=== PATIENT | male | born 1985 | race African-American/Black ===

== ENCOUNTER 2019-01-20 07:34 | Inpatient (IN) | payer OTHER ==
[~2019-01-20] VITALS: Ht 175.3 cm; Wt 99.8 kg
[2019-01-20 07:34] VITALS: BP 213/148
[2019-01-20 09:02] LABS: ABSOLUTE NEUTROPHILS 4.1 thou/uL (1.4-8.2); BASOPHILS 1.2 % (0.0-2.0); EOSINOPHILS 4.1 % (0.0-3.0); HEMATOCRIT 51.6 % (42.0-52.0); HEMOGLOBIN 16.9 gm/dL (14.0-18.0); LYMPHOCYTES 27.7 % (24.0-44.0); MCH 29.2 pg (26.0-34.0); MCHC 32.8 g/dL (28.0-37.0); MCV 89.1 fL (80.0-100.0); MONOCYTES 7.5 % (1.0-8.0); PLATELET COUNT 206 thou/uL (150-400); POLYS 59.5 % (36.0-66.0); RDW 14.6 % (10.5-14.5)
[2019-01-20 09:05] LABS: AMP/METHAMP Negative (Negative); BARBITURATES Negative (Negative); BENZODIAZEPINES Negative (Negative); COCAINE POSITIVE (Negative); METHADONE Negative (Negative); OPIATES Negative (Negative); PCP Negative (Negative)
[2019-01-20 09:10] LABS: CALCIUM 9.1 mg/dL (8.5-10.1); CREATININE 2.6 mg/dL (0.7-1.3); POTASSIUM 4.1 mmol/L (3.5-5.1)
[2019-01-20 09:19] LABS: MAGNESIUM 1.8 mg/dL (1.8-2.4); TOTAL BILIRUBIN 0.6 mg/dL (<0.1-1.0); TOTAL PROTEIN 7.2 g/dL (6.4-8.2); TROPONIN-I 0.08 ng/mL (<0.06)
[2019-01-20 11:19] VITALS: BP 149/95
[2019-01-20 12:30] VITALS: BP 154/66
--- NOTE | 2019-01-20 13:13 | 2DMMODE ---
[facility] [place] [address] 2 D/M-MODE ECHOCARDIOGRAM Name: GOMEZ SEVILLA Room #: 363-P [facility] IN .R.#: [id number] Admission: 01/20/19 Attend Phys: Sohan Kate MD Discharge: Date of : 89 Report #: [id number] THIS REPORT FOR: //name// APPROVED REPORT Study performed: 01/20/2019 11:06:14 EXAM: Comprehensive 2D, Doppler, and color-flow Echocardiogram Patient Location: Echo lab Status: routine BSA: 2.17 HR: 78 bpm BP: 143/94 mmHg Rhythm: NSR Other Information Study Quality: Good Indications Shortness of breath, Elevated BNP. Hx: HTN, Drug use, Tobacco use, ETOH 2D Dimensions RVDd: 40.84 mm IVSd: 13.94 (7-11mm) LVOT Diam: 23.17 (18-24mm) LVDd: 56.65 mm PWd: 15.07 (7-11mm) Ascending Ao: 33.19 (22-36mm) LVDs: 47.59 (25-40mm) Aortic Root: 37.45 mm Volumes Left Atrial Volume (Systole) Single Plane 4CH: 26.54 mL Single Plane 2CH: 63.86 mL LA ESV Index: 21.00 mL/m2 Aortic Valve AoV Peak Chris.: 0.95 m/s AO Peak Gr.: 3.59 mmHg LVOT Max P.96 mmHg LVOT Max V: 0.70 m/s KRISTIAN Vmax: 3.11 cm2 Mitral Valve E/A Ratio: 1.0 MV Decel. Time: 220.09 ms [facility] [address] [address] 2 D/M-MODE ECHOCARDIOGRAM Name: GOMEZ SEVILLA Room #: 363-[facility] IN [facility]#: [id number] Admission: 01/20/19 Attend Phys: Sohan Kate MD Discharge: Date of : 89 Report #: [id number] MV E Max Chris.: 0.65 m/s MV A Chris.: 0.64 m/s MV PHT: 63.83 ms IVRT: 93.43 ms Pulmonary Valve PV Peak Chris.: 0.58 m/s PV Peak Gr.: 1.38 mmHg Tricuspid Valve RAP Estimate: 5.00 mmHg Left Ventricle Left ventricle is borderline dilated. There is global hypokinesis of the left ventricle. Moderate concentric left ventricular hypertrophy. Left ventricular ejection fraction is severely decreased. LVEF is 25%. Mild diastolic dysfunction is present (impaired relaxation pattern). Right Ventricle The right ventricle is normal size. Right ventricle is moderately hypokinetic. Atria The left atrium size is normal. The right atrium size is normal. Aortic Valve The aortic valve is normal in structure. Trace aortic regurgitation. There is no aortic valvular stenosis. Mitral Valve The mitral valve is normal in structure. Trace mitral regurgitation. No evidence of mitral valve stenosis. Tricuspid Valve The tricuspid valve is normal in structure. There is no tricuspid valve regurgitation noted. Unable to assess PA pressure. Pulmonic Valve The pulmonary valve is normal in structure. Trace pulmonic regurgitation. Great Vessels The aortic root is normal in size. IVC is normal in size and collapses >50% with inspiration. [facility] [place] [address] 2 D/M-MODE ECHOCARDIOGRAM Name: GOMEZ SEVILLA Room #: 363-P ADM IN M.R.#: [id number] Admission: 01/20/19 Attend Phys: Sohan Kate MD Discharge: Date of : 89 Report #: [id number] Pericardium There is no pericardial effusion. There is no pleural effusion. <Conclusion> Left ventricular ejection fraction is severely decreased. There is global hypokinesis of the left ventricle. LVEF is 25%. Mild diastolic dysfunction The aortic valve is normal in structure. Trace aortic regurgitation, no stenosis. The mitral valve is normal in structure. Trace mitral regurgitation. There is no tricuspid valve regurgitation noted. Unable to assess pulmonary artery pressure. There is no pericardial effusion. <ELECTRONICALLY SIGNED> By: Shayne Rock MD, [facility] 01/20/19 1313 131 1313 Shayne Rock MD, FACC /INF
--- NOTE | 2019-01-20 13:58 | EKG ---
[address] [address] ELECTROCARDIOGRAM REPORT Name: GOMEZ SEVILLA Room #: 363-P ADM IN M.R.#: [id number] Admission: 01/20/19 Attend Phys: Sohan Kate MD Discharge: Date of : 89 Report #: [id number] THIS REPORT FOR: //name// [facility] ED Test Date: 2019-01-20 Test Time: 08:48:28 Pat Name: GOMEZ SEVILLA Department: Room: 363 Gender: M Master Glazier: dequan : 1985 Requested By: Jj Hernandez Order Number: [id number] MD: Cuate Camarillo Measurements Intervals [place] Rate: 102 P: 51 IA: 150 QRS: 53 QRSD: 99 T: 92 QT: 367 QTc: 479 Interpretive Statements Sinus tachycardia Left atrial enlargement Left ventricular hypertrophy Baseline wander in lead(s) V6 No previous ECG available for comparison Electronically Signed On 01-20-2019 13:57:51 CDT by Cuate Camarillo [email or web address] <ELECTRONICALLY SIGNED> By: Cuate Camarillo MD 01/20/19 1357 7 7 Cuate Camarillo MD /EVER
[2019-01-20 15:55] LABS: CHOLESTEROL 218 mg/dL (<200); HDL CHOLESTEROL 49 mg/dL (>40); LDL CHOLESTEROL 152 mg/dL (<100); TC:HDL 4.4 Ratio (Not establshd); TRIGLYCERIDE 85 mg/dL (<150); VLDL 17 mg/dL (<40)
--- NOTE | 2019-01-20 16:39 | NUR ---
Patient transferred to [address] [place] [address] to room 363 approx. 1215 this afternoon. STAT consults [facility] at 1000 this AM w/ no call to doctors. GLORIA Martinez made this RN aware of consults missed by ER this AM. Dr. Rock aware and renal consult has been called STAT. Pt on room air-no SOB complaints since arrival. Pt SB-SR on the monitor. 40 of lasix given per orders. Fluids dc'd, IV saline locked. No edema noted. Blood pressures still high, cardiology aware and working to start BP meds at this time.
[2019-01-20 16:50] LABS: FOLIC ACID 17.2 ng/mL (8.6-58.9)
[2019-01-20 17:11] VITALS: BP 162/121
[2019-01-20 18:36] LABS: URINE BILIRUBIN NEGATIVE (Negative); URINE BLOOD NEGATIVE (Negative); URINE CLARITY CLEAR; URINE COLOR YELLOW; URINE GLUCOSE-RANDOM* NEGATIVE (Negative); URINE KETONES NEGATIVE (Negative); URINE LEUKOCYTES-REFLEX NEGATIVE (Negative); URINE NITRITE-REFLEX NEGATIVE (Negative); URINE PROTEIN (DIPSTICK) 2+ (Negative); URINE SPECIFIC GRAVITY 1.015 (1.005-1.035); URINE UROBILINOGEN 0.2 E.U./dl (0.2-1.0)
[2019-01-20 18:49] LABS: SQUAMOUS None Seen /LPF (0-3)
[2019-01-20 18:50] LABS: BACTERIA-REFLEX 1-9 Few /HPF (None Seen); CASTS None Seen /LPF (None Seen); CRYSTALS None Seen /LPF (None Seen); URINE RBC None Seen /HPF (0-2); URINE WBC-REFLEX 0-5 Rare /HPF (0-5)
[2019-01-20 20:00] VITALS: BP 162/118
[2019-01-20 23:45] VITALS: BP 143/95
[2019-01-21] VITALS (8 sets, daily range): BP systolic 99–189; BP diastolic 56–133
[2019-01-21 05:54] LABS: ABSOLUTE NEUTROPHILS 4.4 thou/uL (1.4-8.2); BASOPHILS 1.1 % (0.0-2.0); HEMATOCRIT 52.2 % (42.0-52.0); HEMOGLOBIN 16.8 gm/dL (14.0-18.0); LYMPHOCYTES 33.9 % (24.0-44.0); MCH 28.9 pg (26.0-34.0); MCHC 32.2 g/dL (28.0-37.0); MCV 89.6 fL (80.0-100.0); MONOCYTES 8.8 % (1.0-8.0); PLATELET COUNT 236 thou/uL (150-400); POLYS 52.2 % (36.0-66.0); RBC 5.82 mil/uL (4.50-6.00); RDW 15.1 % (10.5-14.5); WBC 8.4 thou/uL (4.0-11.0)
[2019-01-21 06:12] LABS: ANION GAP 7 mmol/L (7-16); BUN 24 mg/dL (7-18); CHLORIDE 102 mmol/L (98-107); CO2 29 mmol/L (21-32); CREATININE 3.1 mg/dL (0.7-1.3); GLUCOSE 128 mg/dL (74-106); MAGNESIUM 1.6 mg/dL (1.8-2.4); POTASSIUM 3.9 mmol/L (3.5-5.1); SODIUM 138 mmol/L (136-145); TROPONIN-I <0.06 ng/mL (<0.06)
--- NOTE | 2019-01-21 06:39 | NUR ---
ASSUMED CARE OF PT AT 1900. A&Ox4, COOPERATIVE. SR ON TELE WITH HR ANYWHERE FROM 60-90'S. BP HAS BEEN WNL, SBP 144 THIS AM, CONTINUING TO MONITOR. DENIED PAIN, FLUTTERING, HEADACHES, SOA THIS SHIFT. UP AD IAN, STEADY GAIT. ASKING WHEN HE CAN GO HOME, AGREED TO TX AND STABILIZING ON MEDICATIONS. CURRENTLY RESTING. PROGRESSING TOWARDS POC GOALS.
[2019-01-21] MEDS ORDERED: CARVEDILOL3.125 MG PO (09:01)
[2019-01-21] MEDS ORDERED: PANTOPRAZOLE SO40 M1 PO (09:01)
[2019-01-21] MEDS ORDERED: ENTRESTO 24 MG1 EACH PO (09:01)
[2019-01-21] MEDS ORDERED: SPIRONOLACTONE25 M1 PO (09:01)
[2019-01-21] MEDS ORDERED: DEMADEX20 MG PO (09:01)
[2019-01-21] MEDS ORDERED: MUCINEX600 MG PO (09:01)
[2019-01-21] MEDS ORDERED: TORSEMIDE10 MG PO (09:12)
--- NOTE | 2019-01-21 12:49 | NUR ---
Patient given PRN IV push hydralazine approx. 1230 for BP of 189/133. Pt up to bathroom about 20 minutes later & pulled bathroom call light after using restroom. This RN walks into room and finds patient sitting in front of the bathroom on the floor. Patient decided to lay down stating that he feels nauseous and dizzy. Patient very diaphoretic. Vitals machine obtained. Two other nurses arrived to assist. BP of 141/56 and heart rate 115. Patient also vomited half a basin of yellow emesis. Patient continued to sit on the floor until he felt like he could safely stand and walk. Patient used bathroom once more then steadily walked back to bed. Dr. Kate paged. Patient instructed to stay in bed until symptoms subside. Pt hasn't recieved IV hydralazine this hospital stay until now. Will discuss episode with Dr. Kate and continue to monitor BP status and patient safety.
--- NOTE | 2019-01-21 14:27 | NUR ---
INITIAL ASSESSMENT/DISCHARGE NOTE: SW reviewed chart and spoke with nursing and attending physician. Pt was admitted from home due to CHF/HTN. Pt with hx of not taking his blood pressure medications. Pt's drug test was positive for THC and Cocaine. Pt has discharge orders to go home today. Pt's BP was 189/133 earlier this afternoon. Pt was given IV hydralizine. SW met with pt at bedside. Pt had lights off in room and head covered with the blanket. Plan is for pt to discharge home when medically stable. No SW needs identified at this time, but is available to assist should needs arise.
--- NOTE | 2019-01-21 17:36 | EKG ---
[address] [address] ELECTROCARDIOGRAM REPORT Name: GOMEZ SEVILLA Room #: 363-P ADM IN M.R.#: [id number] Admission: 01/20/19 Attend Phys: Sohan Kate MD Discharge: Date of : 89 Report #: [id number] THIS REPORT FOR: //name// [facility] Test Date: 2019-01-21 Test Time: 09:42:21 Pat Name: GOMEZ SEVILLA Department: Room: 363 P Gender: M Safety Representative: ELOISA : 1985 Requested By: Shayne Rock Order Number: [id number] MD: Shayne Rock Measurements Intervals [place] Rate: 87 P: 49 VA: 150 QRS: 43 QRSD: 99 T: 127 QT: 390 QTc: 470 Interpretive Statements Sinus rhythm Probable left atrial enlargement LVH with secondary repolarization abnormality Borderline prolonged QT interval Compared to ECG 01/20/2019 08:48:28 Sinus tachycardia no longer present Electronically Signed On 01-21-2019 17:36:38 CDT by Shayne Rock [email or web address] <ELECTRONICALLY SIGNED> By: Shayne Rock MD, [facility] 01/21/19 1736 0942 0942 Shayne Rock MD, [facility] /EPI
--- NOTE | 2019-01-24 12:11 | HC ---
[facility] [place] [address] CONSULTATION Name: GOMEZ SEVILLA Room #: 363-P [facility] IN M.R.#: [id number] Admission: 01/20/19 Attend Phys: Sohan Kate MD Discharge: 01/21/19 Date of : 89 Report #: [id number] THIS REPORT FOR: //name// CC: Sohan Kate [facility] physician/PCP DATE OF SERVICE: 01/21/2019 REASON FOR CONSULTATION: Elevated creatinine. REASON FOR PRESENTATION: Shortness of breath. HISTORY OF PRESENT ILLNESS: This is a 33-year-old with past medical history of hypertension and noncompliance with medical care. He tells me that he does not have a primary care physician. He admits to cocaine and marijuana abuse. He presented yesterday reporting that he has been having some shortness of breath. No previous similar episodes. He had some upper respiratory tract symptoms in the form of productive cough, chest congestion. He denies any fever or chills. He was found to have an elevated creatinine at 2.6 on his presentation. His blood pressure was significantly elevated at 213/148. With the appropriate reduction in his blood pressure, his creatinine has started to go up to a 3.1 level as of today. The patient is aware of his previous medical problems; however, he has not been taking any blood pressure medication for the last year. He usually goes to [facility] for his care. His cardiac echo revealed significant cardiomyopathy with an ejection fractions of around 25%. PAST MEDICAL HISTORY: 1. Hypertension. 2. Noncompliance. FAMILY HISTORY: Hypertension. SOCIAL HISTORY: He admits to cocaine and marijuana abuse. REVIEW OF SYSTEMS: GENERAL: No fever or chills. CARDIOVASCULAR: As per the history of present illness. PULMONARY: As per the history of present illness. GASTROINTESTINAL: No nausea or vomiting. GENITOURINARY: No urinary frequency or urgency. MUSCULOSKELETAL: No back pain. No myalgias. SKIN: No rash or ulcerations. NEUROLOGICAL: No headache. No dizziness. PHYSICAL EXAMINATION: GENERAL: He is alert, oriented, and in no apparent distress. [facility] [address] [place] [address] CONSULTATION Name: GOMEZ SEVILLA Room #: 363-P [facility] IN M.R.#: [id number] Admission: 01/20/19 Attend Phys: Sohan Kate MD Discharge: 01/21/19 Date of : 89 Report #: [id number] VITAL SIGNS: His temperature was 37.1 and blood pressure 160/137. HEAD AND NECK: No jugular venous distention. CHEST: No crackles. CARDIOVASCULAR: Regular with no rub detected. ABDOMEN: Soft and nontender. EXTREMITIES: Lower extremities, no edema. LABORATORY DATA: Reviewed. Sodium 138. BUN is 24. Creatinine is 3.1. Cardiac echo is consistent with cardiomyopathy. Chest x-ray, multifocal pneumonia. UDS is significant for cocaine and marijuana. IMPRESSION: 1. Acute kidney injury. 2. Chronic kidney disease with arterionephrosclerosis. 3. Hypertensive urgency. 4. Substance abuse. PLAN: 1. Unfortunately, this is an advanced kidney disease due to untreated hypertension and noncompliance. It is expected that his creatinine will continue to rise with the hemodynamic changes bringing his blood pressure to target. 2. Needs followup with the kidney clinic, as his kidney numbers are expected to continue to worsen if he does not have appropriate medical care. 3. Ideally and for his blood pressure, he should be on an angiotensin receptor ryan, a thiazide diuretic, and Aldactone. 4. Watch electrolytes. 5. Watch urine output. 6. Avoid nephrotoxins. <ELECTRONICALLY SIGNED> By: Tiffany Marcum MD 01/24/19 1211 0929 1412 Tiffany Marcum MD /nt
== END 2019-01-21 19:04 | disposition home or self-care (01) | DRG 291 ==
LOC: ER 07:34 → EROBS 10:14 → 3W 10:14 → TBA 11:07 → 3W 11:22 → ENTRNSPT 01-21 18:37 → 3W 01-21 19:04
PROVIDERS: Emergency Medicine; Internal Medicine; Nurse Practitioner; ADMIT Hospitalist
DX: I13.0 Hypertensive heart and chronic kidney disease with heart failure and stage 1 through stage 4 chronic kidney disease, or unspecified chronic kidney disease (principal); I50.23 Acute on chronic systolic (congestive) heart failure; J18.9 Pneumonia, unspecified organism; N17.9 Acute kidney failure, unspecified; I16.0 Hypertensive urgency; I42.9 Cardiomyopathy, unspecified; J20.9 Acute bronchitis, unspecified; N18.9 Chronic kidney disease, unspecified; J45.909 Unspecified asthma, uncomplicated; F17.210 Nicotine dependence, cigarettes, uncomplicated; F14.90 Cocaine use, unspecified, uncomplicated; F19.10 Other psychoactive substance abuse, uncomplicated; I08.0 Rheumatic disorders of both mitral and aortic valves; R00.0 Tachycardia, unspecified; F12.10 Cannabis abuse, uncomplicated; Z87.01 Personal history of pneumonia (recurrent); Z79.899 Other long term (current) drug therapy; Z91.19 Patient's noncompliance with other medical treatment and regimen; Z71.51 Drug abuse counseling and surveillance of drug abuser; Z82.49 Family history of ischemic heart disease and other diseases of the circulatory system
CPT/HCPCS: 10879